=== PATIENT | male | born 1965 | race Caucasian/White ===

== ENCOUNTER 2020-04-05 05:37 | Outpatient (RCR) | payer BC ==
[~2020-04-05] VITALS: Ht 182 cm; Wt 95.4 kg
== END 2020-04-05 09:48 | disposition home or self-care (01) ==
LOC: PREOP 05:37
PROVIDERS: ATTEND Surgery
DX: Z01.812 Encounter for preprocedural laboratory examination (principal); Z12.11 Encounter for screening for malignant neoplasm of colon; Z20.828 Contact with and (suspected) exposure to other viral communicable diseases
CPT/HCPCS: 87635

== ENCOUNTER 2020-04-09 05:37 | Outpatient (RCR) | payer BC ==
[~2020-04-09] VITALS: Ht 182.9 cm; Wt 94.1 kg
== END 2020-04-09 10:12 | disposition home or self-care (01) ==
LOC: PREOP 05:37
PROVIDERS: ATTEND Surgery
DX: Z01.818 Encounter for other preprocedural examination (principal); K40.90 Unilateral inguinal hernia, without obstruction or gangrene, not specified as recurrent; Z20.828 Contact with and (suspected) exposure to other viral communicable diseases
CPT/HCPCS: 87081

== ENCOUNTER 2020-04-09 07:14 | Day surgery (SDC) | payer BC ==
[~2020-04-09] VITALS: Ht 182 cm; Wt 93.0 kg
[2020-04-09] MEDS ORDERED: LACTATED RINGERS 1,000 ML IV STA (07:16)
[2020-04-09] MEDS ORDERED: LACTATED RINGERS 1,000 ML IV ONE (07:17)
[2020-04-09] MEDS ORDERED: PROPOFOL INJECTION 50 ML IV ONE (07:35)
[2020-04-09] MEDS ORDERED: MIDAZOLAM 2 MG/2 ML (VERSED) VIAL ONE (07:35)
[2020-04-09 07:53] VITALS: BP 137/92
--- NOTE | 2020-04-09 08:02 | Progress Note-Pre Operative ---
Pre-Operative Progress Note H&P Reviewed The H&P was reviewed, patient examined and no changes noted. Date Seen by Provider: Apr 09, 2020 Time Seen by Provider: 08:02 Date H&P Reviewed: Apr 09, 2020 Time H&P Reviewed: 08:02 Pre-Operative Diagnosis: screening colonoscopy SANTI VENEGAS DO Apr 09, 2020 08:02
[2020-04-09] MEDS ORDERED: proPOfol 200 MG/20 ML (DIPRIVAN) VIAL IV ONE ×2 (08:20→08:34)
[2020-04-09 08:50] VITALS: BP 127/90
[2020-04-09 08:55] VITALS: BP 134/90
--- NOTE | 2020-04-09 08:55 | Discharge Inst-Simple/Standard ---
Discharge Inst-Standard Patient Instructions/Follow Up Plan of Care/Instructions/FU: 2-3 weeks Guillaume Activity as Tolerated: Yes Discharge Diet: Regular Diet (high fiber) SANTI VENEGAS DO Apr 09, 2020 08:55
[2020-04-09 09:00] VITALS: BP_SYST 124; BP_SYST 131; BP_DIAS 82; BP_DIAS 86
[2020-04-09 09:30] VITALS: BP 130/85
[2020-04-09 09:33] VITALS: BP 130/85
--- NOTE | 2020-04-09 12:41 | Anesthesia-General Post-Op ---
MAC Patient Condition Mental Status/LOC: Same as Preop Cardiovascular: Satisfactory Nausea/Vomiting: Absent Respiratory: Satisfactory Pain: Controlled Complications: Absent Post Op Complications Complications None Follow Up Care/Instructions Patient Instructions None needed. Anesthesiology Discharge Order Discharge Order Patient is doing well, no complaints, stable vital signs, no apparent adverse anesthesia problems. No complications reported per nursing. FREIDA MASTERSON CRNA Apr 09, 2020 12:41
--- NOTE | 2020-04-09 16:02 | OPERATIVE REPORT ---
DATE OF SERVICE: 04/09/2020 PREOPERATIVE DIAGNOSIS: Screening colonoscopy. POSTOPERATIVE DIAGNOSES: Cecal polyp, diverticulosis. PROCEDURE: Colonoscopy with hot biopsy polypectomy x1. SURGEON: Santi Galaviz DO ANESTHESIA: Per CRTS. ESTIMATED BLOOD LOSS: None. COMPLICATIONS: None. INDICATIONS: The patient is a 54-year-old male needing screening colonoscopy. He understands risks and benefits of procedure and wished to proceed with procedure. Consent was signed in the chart. DESCRIPTION OF PROCEDURE: The patient was taken to the endoscopy suite, placed in left lateral recumbent position. Timeout was performed. Digital rectal exam was performed. No palpable polyps, masses or ulcerations. Scope was inserted in the rectum and advanced all the way to cecum with minimal difficulty. Prep was adequate with irrigation and suction. Scope was then slowly retracted back. There was a small polyp in the cecum, which hot biopsy polypectomy was performed. Scope was then continued slowly retracted back. No polyps, masses or ulcerations within the ascending, transverse, descending and sigmoid colon. In sigmoid colon, moderate amount of diverticula present. Scope the rectum, it was retroflexed noting no other pathology. Scope was returned to its normal position and slowly withdrawn until completely removed. The patient tolerated procedure well without any complications, taken to recovery room in stable condition. RECOMMENDATIONS: The patient will need repeat colonoscopy in 5 years. Any issues before that be seen at that time. Recommend high fiber diet due to diverticula. The patient will follow followup to discuss pathology results. Job ID: [id number] DocumentID: [id number] Dictated Date: 04/09/2020 08:53:50 Medicare Compliance Auditor Date: 04/09/2020 16:00:55 Dictated By: SANTI GALAVIZ DO
== END 2020-04-09 09:32 | disposition home or self-care (01) ==
LOC: ENDO 07:14
PROVIDERS: ATTEND Surgery
DX: Z12.11 Encounter for screening for malignant neoplasm of colon (principal); D12.0 Benign neoplasm of cecum; K57.30 Diverticulosis of large intestine without perforation or abscess without bleeding; K40.90 Unilateral inguinal hernia, without obstruction or gangrene, not specified as recurrent; Z83.3 Family history of diabetes mellitus
CPT/HCPCS: 88305

== ENCOUNTER 2020-04-12 08:03 | Day surgery (SDC) | payer BC ==
[2020-04-12] VITALS (9 sets, daily range): BP systolic 116–156; BP diastolic 76–97
[~2020-04-12] VITALS: Ht 182.9 cm; Wt 94.1 kg
[2020-04-12] MEDS ORDERED: ceFAZolin 2 GM IV Premixed 50 ML IV ONE (08:15)
--- NOTE | 2020-04-12 08:31 | Progress Note-Pre Operative ---
Pre-Operative Progress Note H&P Reviewed The H&P was reviewed, patient examined and no changes noted. Date Seen by Provider: Apr 12, 2020 Time Seen by Provider: 08:30 Date H&P Reviewed: Apr 12, 2020 Time H&P Reviewed: 08:30 Pre-Operative Diagnosis: right inguinal hernia SANTI VENEGAS DO Apr 12, 2020 08:31
[2020-04-12] MEDS: LACTATED RINGERS 1,000 ML IV PRN ×2 (08:35→10:32)
[2020-04-12] MEDS ORDERED: CATHETER FLUSH 10 ML SYR IV PRN (08:45)
[2020-04-12] MEDS ORDERED: SEVOFLURANE (ULTANE) 15 ML INHAL SOLN ONE ×2 (09:30→10:24)
[2020-04-12] MEDS ORDERED: ROCURONIUM 10 MG/ML 5 ML SYRINGE IV ONE ×2 (09:30→09:51)
[2020-04-12] MEDS ORDERED: fentaNYL INJECTION 100 MCG/2 ML AMP ONE (09:30)
[2020-04-12] MEDS ORDERED: proPOfol 200 MG/20 ML (DIPRIVAN) VIAL IV ONE ×2 (09:30→09:51)
[2020-04-12] MEDS ORDERED: MIDAZOLAM 2 MG/2 ML (VERSED) VIAL ONE (09:30)
[2020-04-12] MEDS ORDERED: ONDANSETRON 4 MG/2 ML (SDV) Z0FRAN ONE ×2 (09:30→09:56)
[2020-04-12] MEDS ORDERED: LIDOCAINE/EPI 1%-1:200,000 (XYLOCAINE) 30 ML VIAL ONE (09:32)
[2020-04-12] MEDS ORDERED: NEOSTIGMINE 3 MG/3 ML VIAL ONE (09:33)
[2020-04-12] MEDS ORDERED: GLYCOPYRROLATE 0.2 MG/ML (ROBINUL) 2 ML VIAL ONE (09:33)
[2020-04-12] MEDS ORDERED: LIDOCAINE PF 2% 5 ML (XYLOCAINE) VIAL ONE (09:51)
[2020-04-12] MEDS ORDERED: HYDR-4226 PO (10:32)
[2020-04-12] MEDS ORDERED: DOCU-143 PO (10:32)
--- NOTE | 2020-04-12 10:33 | Discharge Inst-Simple/Standard ---
Discharge Inst-Standard Discharge Medications New, Converted or Re-Newed RX: RX on Chart Patient Instructions/Follow Up Plan of Care/Instructions/FU: 2-3 WEEKS RUBI Activity as Tolerated: No Discharge Diet: Regular Diet Other Inst to Patient Follow up Appt: Make appointment for 2-3 weeks. Instructions: No lifting greater than 10 pounds. No strenuous activity. May shower in 24 hours, no tub bath or soaking. Use incentive spirometer at home as directed. No Smoking Skin/Wound Care: You have special glue over your incision that will fall off on it's own. Symptoms to Report: Appetite Changes, Extremity Discoloration, Numbness/Tingling, Swelling Increased, Bleeding Excessive, Eyesight Changes, Pain Increased, Urine Color Change, Constipation(Persistent), Fever over 101 degree F, Pain/Pressure in chest, Urinating Difficulty, Cough Up/Vomit Blood, Heart Beat Irreg/Pounding, Pain/Pressure in jaw, Vaginal Bleeding Increase, Cramps in feet or legs, Lightheadedness, Pain/Pressure in shoulder, Diarrhea(Persistent), Memory Changes Suddenly, Questions/Concerns, Weight gain consecutive days, Dizziness/Fainting, Nausea/Vomiting, Shortness of Breath, Weight gain over 2 pounds If questions or concerns contact your physician Or seek help at emergency department. SANTI VENEGAS DO Apr 12, 2020 10:33
[2020-04-12] MEDS ORDERED: HYDROmorphone 2 MG/ML VIAL (DILAUDID) IV ONE (10:45)
[2020-04-12] MEDS ORDERED: ONDANSETRON 4 MG/2 ML (SDV) Z0FRAN IVP PRN (10:45)
--- NOTE | 2020-04-12 10:49 | Anesthesia-General Post-Op ---
General Patient Condition Mental Status/LOC: Same as Preop Cardiovascular: Satisfactory Nausea/Vomiting: Absent Respiratory: Satisfactory Pain: Controlled Complications: Absent Post Op Complications Complications None Follow Up Care/Instructions Patient Instructions None needed. Anesthesia/Patient Condition Patient Condition Patient is doing well, no complaints, stable vital signs, no apparent adverse anesthesia problems. No complications reported per nursing. D/C home per [facility] Criteria: Yes CORRIE LI CRNA Apr 12, 2020 10:49
--- NOTE | 2020-04-12 20:07 | Progress Note-Post Operative ---
Post-Operative Progess Note Surgeon (s)/Senior Solutions Consultant (s) Surgeon SANTI VENEGAS DO Senior Solutions Consultant: Dr. Heath to assist in retraction dissection and closure Pre-Operative Diagnosis right inguinal hernia Post-Operative Diagnosis incarcerated right indirectin inguinal hernia, cord lipoma Procedure & Operative Findings Date of Procedure 04/12/20 Procedure Performed/Findings PROCEDURE: Open right incarcerated inguinal hernia repair and excision cord lipoma COMPLICATIONS: None. INDICATIONS: The patient is a 54, male male with a inguinal hernia. He understands risks and benefits of procedure and wished to proceed with procedure. Consent was signed in the chart. DESCRIPTION OF PROCEDURE: The patient was taken to the operating suite, was prepped and draped in sterile fashion. Surgical pause was performed. Local anesthetic was infiltrated in the lower quadrant. Incision was made and cautery used to dissect down to the external oblique, which was then opened down through the external ring. The spermatic cord was then dissected around. A Paz drain was placed around it and there was no direct defect present. A indirect hernia present which was then dissected off of spermatic cord along with cord lipoma that was excised. Fat and small bowel was incarcerated through hernia at attached to sac. Was dissected off and reduced. The hernia sac was closed with 2-0 Vicyrl in pursestring fashion. Using ProGrip mesh, this was secured at Sven's ligament and then incorporated around the spermatic cord and placed under the external oblique. Hemostasis was achieved. The external oblique was then closed recreating the external ring and then the subcutaneous tissues were then reapproximated using 3-0 Vicryl and skin was then closed using 4-0 Monocryl in a subcuticular fashion. The abdomen was then washed and dried and Skin Affix was placed over the incision. The patient tolerated procedure well without any complications and taken to recovery room in stable condition. Anesthesia Type general Estimated Blood Loss Estimated blood loss (mL): minimal Specimens/Packing Specimens Removed hernia sac, cord lipoma SANTI VENEGAS DO Apr 12, 2020 20:07
== END 2020-04-12 12:25 | disposition home or self-care (01) ==
LOC: SDC 08:03
PROVIDERS: ATTEND Surgery
DX: K40.30 Unilateral inguinal hernia, with obstruction, without gangrene, not specified as recurrent (principal); D17.6 Benign lipomatous neoplasm of spermatic cord; Z83.3 Family history of diabetes mellitus
CPT/HCPCS: 49507; 55520; C1781